=== PATIENT | male | born 1955 | race Caucasian/White ===

== ENCOUNTER 2021-01-05 10:37 | Observation (INO) | payer BC ==
[~2021-01-05] VITALS: Ht 182.9 cm; Wt 100.0 kg
[2021-01-05] VITALS (9 sets, daily range): BP systolic 125–146; BP diastolic 53–86; PULSE 52–60; TEMP 97.4–98
[2021-01-05 11:49] LABS: COLLECTION METHOD CLEAN CATCH
[2021-01-05 11:55] LABS: MUCOUS Present /lpf; PH 5 (5-8); SQUAMOUS EPITHELIAL 0-2 /hpf; URINE APPEARANCE Clear; URINE BACTERIA None Seen /hpf; URINE BILIRUBIN Negative (NEGATIVE); URINE BLOOD Negative (NEGATIVE); URINE COLOR Yellow; URINE GLUCOSE Negative (NEGATIVE); URINE KETONE Negative (NEGATIVE); URINE LEUKOCYTE ESTERASE Negative (NEGATIVE); URINE NITRATE Negative (NEGATIVE); URINE PROTEIN(semi-quant) Negative (NEGATIVE); URINE RBC None Seen /hpf; URINE UROBILINOGEN Negative (NEGATIVE)
[2021-01-05 11:57] LABS: BASO # 0.1 (0.0-0.2); BASO % 0.4 % (0.0-2.0); EOS # 0.1 (0.0-0.7); EOS % 0.6 % (0-4.0); GRAN # 12.4 (1.4-6.5); GRAN % 79.8 % (42.2-75.2); HEMATOCRIT 49.7 % (42.0-52.0); HEMOGLOBIN 16.8 g/dl (13.5-18.0); LYMPH # 1.7 (1.2-3.4); LYMPH % 11.1 % (20.0-51.0); MEAN CELL VOLUME 95 fl (80.0-100.0); MEAN CORPUSCULAR HEMOGLOBIN 32 pg (27.0-31.0); MEAN CORPUSCULAR HGB CONC 34 g/dl (33.0-37.0); MEAN PLATELET VOLUME 9.7 fl (7.4-10.4); MONO # 1.2 (0.1-0.6); MONO % 7.8 % (1.7-9.3); PLATELET COUNT 268 K/mm3 (130-400); RED BLOOD COUNT 5.23 M/mm3 (4.20-5.60); REDCELL DISTRIBUTION WIDTH-CV 12.6 % (11.5-14.5)
[2021-01-05 12:06] LABS: ALBUMIN 4.5 gm/dL (3.5-5.0); BILIRUBIN,TOTAL 2.1 mg/dL (0.0-1.0); CALCIUM 9.6 mg/dL (8.4-10.2); CREATININE, serum 0.86 (0.66-1.25); POTASSIUM 4.2 mmol/L (3.4-5.0); TOTAL PROTEIN 8.4 gm/dL (6.4-8.2)
[2021-01-05 12:36] LABS: C-REACTIVE PROTEIN 19.5 mg/dL (0.0-0.9)
--- NOTE | 2021-01-05 18:55 | NUR ---
RECEIVED FROM PACU VIA HOSP BED/PACU ACCOMPANYING PATIENT. PATIENT DENIES ANY CHEST PAIN/SOA/NAUSEA/URGE TO VOID AT THIS TIME. ABD LAP INCISION X3 WITH BANDAID DRSGS X3 THAT ARE CLEAN, DRY & INTACT. INSTRUCTED PATIENT ON SCD AND COUGHING/DEEP BREATHING EXERCISES POST OP. DENIES ANY OTHER QUESTIONS AT THIS TIME. IVF INFUSING TO LFA AT THIS TIME WITH NO PROBLEMS.
[2021-01-06 04:22] VITALS: BP 113/56; PULSE 63; TEMP 97.6
--- NOTE | 2021-01-06 06:49 | NUR ---
CHANGE OF SHIFT REPORT GIVEN TO DAY SHIFT NURSEGLORIA RN.
--- NOTE | 2021-01-06 07:46 | NUR ---
Patient resting in bed. rounded. Patient ordering a general breakfast. He is alert & oriented. Rlq dressing CDI. He drenis yet passiung flatus. Denies nausea. Will manish.
[2021-01-06 08:33] VITALS: BP 148/73; PULSE 56; TEMP 98.4
--- NOTE | 2021-01-06 10:20 | NUR ---
Patient denies needs. tolerated breakfast tray.
--- NOTE | 2021-01-06 11:09 | NUR ---
First visit from the rotary drier operator. No needs right now.
--- NOTE | 2021-01-06 11:21 | NUR ---
[employer] met with the patient to complete intake. The patient lives independently in [place]. The patient denies DME use. The patient's PCP is Dr. Silva and patient receives medications from [facility] [place]. The patient does not have advanced directives and was no interested in DPOA-HC form. The patient is not and has no children. He has a sister, Emily Conteh who lives locally and a brother Tonny Szymanski who lives in [place]. The patient plans to return home at discharge. SW staffed with the patient's nurse. He is independent and ambulating in the halls without assistance. *Discharge disposition: Home
[2021-01-06 12:07] VITALS: BP 121/71; PULSE 67; TEMP 98.1
--- NOTE | 2021-01-06 13:51 | NUR ---
rounded. Discharge orders obtained. Tylenol PRN given. RLQ. states patient can drive himself home. He tolerated lunch. All discharge instruction given. Denies questions or concerns. Follow up appt reviewed & patient awar eto call with question or cocnerns.
== END 2021-01-06 13:58 | disposition home or self-care (01) ==
LOC: COL.ER 10:37 → SURG 14:54
PROVIDERS: Physician Assistant; ADMIT Surgery
DX: Q43.0 Meckel's diverticulum (displaced) (hypertrophic) (principal)
CPT/HCPCS: G0378; J1170; J1885; J2270; J2543; J2704; J3010; J7030; J7120; Q9967